=== PATIENT | female | born 1930 | race Caucasian/White ===

== ENCOUNTER → 2016-11-18 | Outpatient (CLI) | payer OTHER ==
[~2016-11-18] MED LIST: A THRU Z ADVAN1 EACH PO; AMLODIPINE-BEN1 EACH PO; ARIMIDEX1 MG PO; ASPIRIN81 M2 PO; CARDIZEM SR PO; CHONDROITIN SU100 G1 PO; CORDARONE200 M1 PO; COUMADIN2.5 MG PO; DELSYM30 MG/5 ML PO; EXELON1 PATCH .2 EXT; GLUCOPHAGE500 MG PO; GLUCOSAMINE & C1 CAP PO; GLUCOSAMINE H1500 MG PO; HCTZ PO; LEVOTHYROXINE25 MCG PO; LOTREL 5/20 MG1 CAP PO; METFORMIN HCL500 M1 PO; METOPROLOL SUCC25 MG PO; METOPROLOL TART25 MG PO; MULTIVITAMIN; MULTIVITAMIN1 UDCAP PO; NAMENDA10 MG PO; NORVASC PO; PRADAXA150 MG PO; PRAVACHOL PO; PRAVASTATIN SOD40 MG PO; TAMOXIFEN CITRA20 MG PO; TOPROL XL 50 MG50 MG PO; TYLENOL EXTRA500 M1 PO; TYLENOL EXTRA500 M2 PO; VIT B-12 IM
--- NOTE | ~2016-11-18 | MY28 ---
[facility] A Service of [facility] & [facility] RADIOLOGY TEXT RESULTS PATIENT: RENZO MILLS LOCATION: [facility] : 30 UNIT #: [id number] AGE: [address]: Alfonso Gomez MD SEX: F ORDER DR: [id number] [facility] [address] [place], [place] [address] [id number] O MR#: [id number] Acc #: [id number] NAME: RENZO MILLS : 1930 SEX: F STUDY DATE/TIME: 11/18/2016 12:49 UNIT: [facility] ROOM: STUDY DESCRIPTION: MY FABIANO SCREEN W/ CAD UNI RT Attending Physician: Alfonso Gomez M.D. Referring Physician: Alfonso Gomez M.D. Ordering Physician: Alfonso Gomez M.D. Primary Care Physician: Alfonso Gomez M.D. MEDICAL IMAGING REPORT This report is preliminary unless electronic signature is present EXAM Right digital screening mammogram with CAD. COMPARISON November 11, 2015, October 16, 2014, August 15, 2013, August 01, 2012, July 20, 2011, November 03, 2008, October 25, 2007, October 17, 2006. INDICATION Breast cancer screening. 86-year-old asymptomatic female with a history of left mastectomy for breast cancer. FINDINGS There are scattered fibroglandular densities. Overall breast density appears to have increased slightly, perhaps due to interval weight loss as compression thickness is diminished from comparison study as well. Evaluation of the right breast is limited by exclusion of posterior tissues but best obtainable images were acquired. No suspicious findings were seen in the right breast. IMPRESSION 1. Post left mastectomy for breast cancer. 2. Mildly diffusely increased density in the right breast, perhaps due to interval weight loss from 2016. Clinical correlation recommended. No mammographic evidence of malignancy in the right breast. Clinical correlation for history of CHF is also recommended. This is also a finding which can be seen in fluid retention associated with renal failure. Patients over the age of 40 are entered into a reminder system with target due date for the next mammogram. A result letter will also be sent to the patient. [facility] A Service of [facility] RADIOLOGY TEXT RESULTS PATIENT: RENZO MILLS LOCATION: [facility] : 30 UNIT #: [id number] AGE: [address]: Alfonso Gomez MD SEX: F ORDER DR: BIRADS: 2 Benign findings. Dictated by... Azar Tirado M.D. THIS IS AN ELECTRONICALLY VERIFIED REPORT Azar Tirado M.D. at 11/22/2016 8:01 AM CLAYTON/alexsandra TD: 11/18/2016 16:07 JOB #: [id number] MEDICAL IMAGING REPORT Page 1 of 1 COPY
== END | disposition home or self-care (01) ==
LOC: CWCC 11:45
DX: Z12.31 Encounter for screening mammogram for malignant neoplasm of breast (principal); Z85.3 Personal history of malignant neoplasm of breast; Z90.12 Acquired absence of left breast and nipple; R92.8 Other abnormal and inconclusive findings on diagnostic imaging of breast
CPT/HCPCS: G0202